=== PATIENT | female | born 1990 | race Caucasian/White ===

== ENCOUNTER 2016-07-21 14:06 | Emergency (ER) | payer OTHER ==
--- NOTE | 2016-07-21 15:00 | DIAGNOSTIC IMAGING REPORT ---
PROCEDURE: XR CHEST 2 VIEW INDICATION: COUGH TECHNIQUE: PA and lateral views. COMPARISON: None. FINDINGS: Lungs are clear. Heart and mediastinum are normal. Thorax is normal. IMPRESSION: 1. Negative chest.
--- NOTE | 2016-07-21 15:38 | ED CLINICAL REPORT ---
Clinical Report - Physicians/Mid Levels [facility] [address] [place] [address] 07/21/2016 14:10 Patient: GARY GREGG Time Seen: 14:31 Jul 21 2016. Arrived- By private vehicle. Historian- patient. 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 The dyspnea is described as moderate. The patient has had a cough. (2 days of cough, shortness of breath, and wheezing, able to use her rescue inhaler, however out of her nebulizer. Denies any travel. Denies fevers. Reports sore throat. In addition patient reports left foot pain ongoing over the last 3 days, worse with movement and standing. Denies any trauma. Denies any change in issues in position, denies any changes in activities of daily living, that would affect her left foot. Denies a rash to the foot.). REVIEW OF SYSTEMS No sinus drainage, fever, chills, abdominal pain or diarrhea. All systems otherwise negative, except as recorded above. PAST HISTORY Problems: Asthma. Contusion. Foreign Body, Vagina. Additional Surgeries: Right Hand . Medications: Albuterol Sulfate HFA Inhalation, as needed. Allergies: Erythromycin. SOCIAL HISTORY Smoker- current status unknown. No alcohol use or drug use. ADDITIONAL NOTES The nursing notes have been reviewed. PHYSICAL EXAM Vital Signs: 07/21/2016 14:20 BP: 112/76. HR: 90. RR: 20. O2 saturation: 97%. Temp: 98.6 F. ENT: Nose normal. Pharynx normal. Neck: Normal inspection. CVS: Normal heart rate and rhythm. Heart sounds normal. Respiratory: No respiratory distress. Wheezing present. Back: Normal inspection. Skin: Skin warm. Normal skin color. No rash. Extremities: (left distal foot dorsal tenderness, no swelling, no rash.). Neuro: Oriented X 3. LABS, X-RAYS, AND EKG Chest X-ray: (IMPRESSION: 1. Negative chest. Electronically Final signed by:Gabe Pruitt MD 07/21/2016 3:04:07 PM). Laboratory Tests: Culture, Strep Screen: (MARYBETH: 07/21/2016 14:30) ( MsgRcvd 07/21/2016 14:46) Final results Test Result Flag Units (Reference) RAPID STREP SCREEN - THROAT DATE: 07/21/16 NEGATIVE SCREEN: RAPID STREP SCREEN NEGATIVE; CONFIRMATION TO FOLLOW . PROGRESS AND PROCEDURES Course of Care: patient eloped from waiting room after chest x-ray, she did not receive a nebulizer treatment in the ER as planned. Patient was phoned, and will be given Medrol Dosepak, otherwise she has no underlying signs of pneumonia, PE less likely, however she eloped prior to reevaluation of her, and also unclear if albuterol nebulizer treatment which have been of relieve. Patient is stable. Patient/family counseled. Disposition: Discharged. CLINICAL IMPRESSION Asthma Exacerbation Eloped. (Electronically signed by Liz Butler P.A.-C 07/21/2016 16:23)
--- NOTE | 2016-07-21 15:38 | ED ORDER SUMMARY ---
..... Patient: GARY GREGG OrderSheet [facility] VisitID: [id number] [place] [address] 26y, F Registration Date/Time: 07/21/2016 ORDER SHEET Weight: 99.7 kg (stated) Allergies: Erythromycin GENERAL ORDERS: Chest 2V Urgent (14:29 07/21/2016 Stefano Vaz.A.-C) (Ack 14:31 NHouse ER Tech1) (14:39 NHouse ER Tech1) Culture, Strep Screen Urgent (14:29 07/21/2016 Stefano Vaz.A.-C) (14:31 NHouse ER Tech1) MEDICATION ORDERS: IV FLUIDS: ORDER SHEET NOTES: [Electronically signed by Liz Butler P.A.-C (16:23 07/21/2016)] [Electronically signed by Rosio Hopper R.N. (16:25 07/21/2016)] [Electronically locked/signed by Rosio Hopper R.N. (16:25 07/21/2016)]
--- NOTE | 2016-07-21 15:38 | ED CLINICAL REPORT ---
Clinical Report - Physicians/Mid Levels [facility] [address] [place] [address] 07/21/2016 14:10 Patient: GARY GREGG Time Seen: 14:31 Jul 21 2016. Arrived- By private vehicle. Historian- patient. 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 The dyspnea is described as moderate. The patient has had a cough. (2 days of cough, shortness of breath, and wheezing, able to use her rescue inhaler, however out of her nebulizer. Denies any travel. Denies fevers. Reports sore throat. In addition patient reports left foot pain ongoing over the last 3 days, worse with movement and standing. Denies any trauma. Denies any change in issues in position, denies any changes in activities of daily living, that would affect her left foot. Denies a rash to the foot.). REVIEW OF SYSTEMS No sinus drainage, fever, chills, abdominal pain or diarrhea. All systems otherwise negative, except as recorded above. PAST HISTORY Problems: Asthma. Contusion. Foreign Body, Vagina. Additional Surgeries: Right Hand . Medications: Albuterol Sulfate HFA Inhalation, as needed. Allergies: Erythromycin. SOCIAL HISTORY Smoker- current status unknown. No alcohol use or drug use. ADDITIONAL NOTES The nursing notes have been reviewed. PHYSICAL EXAM Vital Signs: 07/21/2016 14:20 BP: 112/76. HR: 90. RR: 20. O2 saturation: 97%. Temp: 98.6 F. ENT: Nose normal. Pharynx normal. Neck: Normal inspection. CVS: Normal heart rate and rhythm. Heart sounds normal. Respiratory: No respiratory distress. Wheezing present. Back: Normal inspection. Skin: Skin warm. Normal skin color. No rash. Extremities: (left distal foot dorsal tenderness, no swelling, no rash.). Neuro: Oriented X 3. LABS, X-RAYS, AND EKG Chest X-ray: (IMPRESSION: 1. Negative chest. Electronically Final signed by:Gabe Pruitt MD 07/21/2016 3:04:07 PM). Laboratory Tests: Culture, Strep Screen: (MARYBEHT: 07/21/2016 14:30) ( MsgRcvd 07/21/2016 14:46) Final results Test Result Flag Units (Reference) RAPID STREP SCREEN - THROAT DATE: 07/21/16 NEGATIVE SCREEN: RAPID STREP SCREEN NEGATIVE; CONFIRMATION TO FOLLOW . PROGRESS AND PROCEDURES Course of Care: patient eloped from waiting room after chest x-ray, she did not receive a nebulizer treatment in the ER as planned. Patient was phoned, and will be given Medrol Dosepak, otherwise she has no underlying signs of pneumonia, PE less likely, however she eloped prior to reevaluation of her, and also unclear if albuterol nebulizer treatment which have been of relieve. Patient is stable. Patient/family counseled. Disposition: Discharged. CLINICAL IMPRESSION Asthma Exacerbation Eloped. (Electronically signed by Liz Butler P.A.-C 07/21/2016 16:23)
--- NOTE | 2016-07-21 15:38 | ED NURSING NOTES ---
Clinical Report - Nurses [facility] [address] [place] [address] 07/21/2016 14:10 Patient: GARY GREGG TRIAGE Triage time 14:Jul 21 2016. Acuity: LEVEL 3. Chief Complaint: COUGH and SORE THROAT and WHEEZING. Alert. No acute distress. --14:29 Rosio Hopper R.N. 14:19 07/21/16. BP: 112/76. HR: 90. RR: 20. O2 saturation: 97%. Temp: 98.6 F. Pain level now 0/10. --14:29 Rosio Hopper R.N. Weight: 99.7 kg stated. Height/Length: 57 inches Per Patient. BMI: 47.6. --14:19 Rosio Hopper R.N. Medications Albuterol Sulfate HFA Inhalation, as needed. --14:22 Rosio Hopper R.N. Medication/allergy information source: the patient. --14: Rosio Hopper R.N. Allergies Erythromycin. --14:22 Rosio Hopper R.N. History Arrived by private vehicle. Historian: patient. Accompanied by friend. Primary physician (Dr. Sanders - [facility]). ( Pt states Asthma Exacerbation, cannot get her Nebulizer d/t paperwork that needs to be submitted by [facility]. In addtion she c/o's Sore Throat, Cough.). Onset. (2 days). 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 PAST MEDICAL HX: Immunizations: seasonal influenza. Last normal menstrual period- beginning of July. No contraception. Denies current . SOCIAL HX: Heavy tobacco smoker (cigarette)- less than 1 pack per day. No alcohol use or drug use. No infectious disease exposure. FALL RISK ASSESSMENT: Fall risk assessment completed. No fall risk identified. NUTRITIONAL RISK ASSESSMENT: The nutritional risk assessment revealed no deficiencies. FUNCTIONAL ASSESSMENT: Functional assessment: no impairments noted. LEARNING NEEDS ASSESSMENT: The learning needs assessment revealed no barriers. SKIN INTEGRITY ASSESSMENT: Skin integrity risk assessment completed. No skin integrity risk identified. --14:29 Rosio Hopper R.N. PROBLEMS: Contusion. Foreign Body, Vagina. --14:24 Rosio Hopper R.N. ADDITIONAL SURGERIES: Right Hand . --14:24 Rosio Hopper R.N. Interventions ID band on patient. To room. --14:29 Rosio Hopper R.N. PHYSICAL ASSESSMENT Ambulatory to room. GENERAL / NEURO / PSYCH: Oriented X 4. Appears in no acute distress. RESPIRATORY: Respirations not labored. Cough. CVS: Capillary refill less than 2 seconds. SKIN: Skin is warm and dry. --16:22 Rosio Hopper R.N. NURSING PROGRESS NOTES Throat swab obtained for rapid strep; labeled in the presence of the patient (collected by PA). --14:29 Rosio Hopper R.N. late entry -. ( pt left, told the front line supervisor she needed to picker her child. RN called pt, asked pt to return or MAXIME Sy would call her in a RX for Mederol Dose Pack. Pt asked if we could phone it in, she is now with her child and unable to return. A mouth piece neb treatment was left at front line supervisor if she returned for it, [facility] unable to provide the Nebulizer at this time. RX called into [facility].). --16:24 Rosio Hopper R.N. DISPOSITION / DISCHARGE 16:06 07/21/16. ( called rx for Medrol dosepak #1, use as directed; per Rd SWARTZ; called to [facility]). --16:06 Hilda Diallo R.N. late entry -. The patient left the Emergency Department without completion of treatment; patient was unaccompanied. The patient appears to be alert, oriented x4, coherent and in no acute distress. The patient notified the ED staff prior to leaving the department and stated is leaving the ED due to personal reasons (had to picker child). Notified the charge nurse of patient departure. Patient left without signing form prior to leaving. She left the Emergency Department ambulatory and via private vehicle. --16:25 Rosio Hopper R.N. Locked/Released at 07/21/2016 16:25 by Rosio Hopper R.N.
--- NOTE | 2016-07-21 15:38 | ED NURSING NOTES ---
Clinical Report - Nurses [facility] [address] [place] [address] 07/21/2016 14:10 Patient: GARY GREGG TRIAGE Triage time 14:Jul 21 2016. Acuity: LEVEL 3. Chief Complaint: COUGH and SORE THROAT and WHEEZING. Alert. No acute distress. --14:29 Rosio Hopper R.N. 14:19 07/21/16. BP: 112/76. HR: 90. RR: 20. O2 saturation: 97%. Temp: 98.6 F. Pain level now 0/10. --14:29 Rosio Hopper R.N. Weight: 99.7 kg stated. Height/Length: 57 inches Per Patient. BMI: 47.6. --14:19 Rosio Hopper R.N. Medications Albuterol Sulfate HFA Inhalation, as needed. --14:22 Rosio Hopper R.N. Medication/allergy information source: the patient. --14: Rosio Hopper R.N. Allergies Erythromycin. --14:22 Rosio Hopper R.N. History Arrived by private vehicle. Historian: patient. Accompanied by friend. Primary physician (Dr. Sanders - [facility]). ( Pt states Asthma Exacerbation, cannot get her Nebulizer d/t paperwork that needs to be submitted by [facility]. In addtion she c/o's Sore Throat, Cough.). Onset. (2 days). 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 PAST MEDICAL HX: Immunizations: seasonal influenza. Last normal menstrual period- beginning of July. No contraception. Denies current . SOCIAL HX: Heavy tobacco smoker (cigarette)- less than 1 pack per day. No alcohol use or drug use. No infectious disease exposure. FALL RISK ASSESSMENT: Fall risk assessment completed. No fall risk identified. NUTRITIONAL RISK ASSESSMENT: The nutritional risk assessment revealed no deficiencies. FUNCTIONAL ASSESSMENT: Functional assessment: no impairments noted. LEARNING NEEDS ASSESSMENT: The learning needs assessment revealed no barriers. SKIN INTEGRITY ASSESSMENT: Skin integrity risk assessment completed. No skin integrity risk identified. --14:29 Rosio Hopper R.N. PROBLEMS: Contusion. Foreign Body, Vagina. --14:24 Rosio Hopper R.N. ADDITIONAL SURGERIES: Right Hand . --14:24 Rosio Hopper R.N. Interventions ID band on patient. To room. --14:29 Rosio Hopper R.N. PHYSICAL ASSESSMENT Ambulatory to room. GENERAL / NEURO / PSYCH: Oriented X 4. Appears in no acute distress. RESPIRATORY: Respirations not labored. Cough. CVS: Capillary refill less than 2 seconds. SKIN: Skin is warm and dry. --16:22 Rosio Hopper R.N. NURSING PROGRESS NOTES Throat swab obtained for rapid strep; labeled in the presence of the patient (collected by PA). --14:29 Rosio Hopper R.N. late entry -. ( pt left, told the front office representative she needed to pick up operator her child. RN called pt, asked pt to return or MAXIME Sy would call her in a RX for Mederol Dose Pack. Pt asked if we could phone it in, she is now with her child and unable to return. A mouth piece neb treatment was left at front office representative if she returned for it, [facility] unable to provide the Nebulizer at this time. RX called into [facility].). --16:24 Rosio Hopper R.N. DISPOSITION / DISCHARGE 16:06 07/21/16. ( called rx for Medrol dosepak #1, use as directed; per Rd SWARTZ; called to [facility]). --16:06 Hilda Diallo R.N. late entry -. The patient left the Emergency Department without completion of treatment; patient was unaccompanied. The patient appears to be alert, oriented x4, coherent and in no acute distress. The patient notified the ED staff prior to leaving the department and stated is leaving the ED due to personal reasons (had to pick up operator child). Notified the charge nurse of patient departure. Patient left without signing form prior to leaving. She left the Emergency Department ambulatory and via private vehicle. --16:25 Rosio Hopper R.N. Locked/Released at 07/21/2016 16:25 by Rosio Hopper R.N.
--- NOTE | 2016-07-21 15:38 | ED ORDER SUMMARY ---
..... Patient: GARY GREGG OrderSheet [facility] VisitID: [id number] [place] [address] 26y, F Registration Date/Time: 07/21/2016 ORDER SHEET Weight: 99.7 kg (stated) Allergies: Erythromycin GENERAL ORDERS: Chest 2V Urgent (14:29 07/21/2016 Stefano Vaz.A.-C) (Ack 14:31 NHouse ER Tech1) (14:39 NHouse ER Tech1) Culture, Strep Screen Urgent (14:29 07/21/2016 Stefano Vaz.A.-C) (14:31 NHouse ER Tech1) MEDICATION ORDERS: IV FLUIDS: ORDER SHEET NOTES: [Electronically signed by Liz Butler P.A.-C (16:23 07/21/2016)] [Electronically signed by Rosio Hopper R.N. (16:25 07/21/2016)] [Electronically locked/signed by Rosio Hopper R.N. (16:25 07/21/2016)]
--- NOTE | 2016-07-21 16:26 | ED MAR SUMMARY ---
..... Medication Administration Record [facility] [address] [place], [place] [id number] Patient: GARY GREGG Visit ID: [id number] 26y, F Weight: 99.7 kg Height/Length: 57 in BMI: 47.6 ALLERGIES: Erythromycin
--- NOTE | 2016-07-21 16:26 | ED MED RECONCILIATION SUMMARY ---
Patient: GARY GERGG Medication Reconciliation Report [facility] VisitID: [id number] [address] [place] [address] 26y, F Registration Date/Time: 07/21/2016 Weight: 99.7 kg Height/Length: 57 in. BMI: 47.6 ALLERGIES: Erythromycin The patient's Home Medications are listed below: THE FOLLOWING MEDICATIONS NEED TO BE RECONCILED: Albuterol Sulfate HFA Inhalation The source(s) of the original Home Medication information: patient The following Medications were given to the patient in the Emergency Department: None. The following Medications were prescribed to the patient: None.
--- NOTE | 2016-07-21 16:26 | ED DISCHARGE INSTRUCTIONS ---
Patient: GARY GREGG General Instructions [facility] VisitID: [id number] [address] [place] [address] 26y, F Registration Date/Time: 07/21/2016 Asthma Exacerbation Eloped. (Electronically signed by Liz Butler P.A.-C 07/21/2016 16:23)
--- NOTE | 2016-07-21 16:26 | ED MAR SUMMARY ---
..... Medication Administration Record [facility] [address] [place], [place] [id number] Patient: GARY GREGG Visit ID: [id number] 26y, F Weight: 99.7 kg Height/Length: 57 in BMI: 47.6 ALLERGIES: Erythromycin
--- NOTE | 2016-07-21 16:26 | ED MED RECONCILIATION SUMMARY ---
Patient: GARY GREGG Medication Reconciliation Report [facility] VisitID: [id number] [address] [place] [address] 26y, F Registration Date/Time: 07/21/2016 Weight: 99.7 kg Height/Length: 57 in. BMI: 47.6 ALLERGIES: Erythromycin The patient's Home Medications are listed below: THE FOLLOWING MEDICATIONS NEED TO BE RECONCILED: Albuterol Sulfate HFA Inhalation The source(s) of the original Home Medication information: patient The following Medications were given to the patient in the Emergency Department: None. The following Medications were prescribed to the patient: None.
--- NOTE | 2016-07-21 16:26 | ED DISCHARGE INSTRUCTIONS ---
Patient: GARY GREGG General Instructions [facility] VisitID: [id number] [address] [place] [address] 26y, F Registration Date/Time: 07/21/2016 Asthma Exacerbation Eloped. (Electronically signed by Liz Butler P.A.-C 07/21/2016 16:23)
== END 2016-07-21 16:00 | disposition left against medical advice (07) ==
LOC: ED SRH 14:06
DX: J45.901 Unspecified asthma with (acute) exacerbation (principal); F17.210 Nicotine dependence, cigarettes, uncomplicated; Z88.1 Allergy status to other antibiotic agents
CPT/HCPCS: 90154; 90159; 90627

== ENCOUNTER 2016-08-14 20:15 | Emergency (ER) | payer OTHER ==
--- NOTE | 2016-08-14 21:16 | DIAGNOSTIC IMAGING REPORT ---
PROCEDURE: CT HEAD WITHOUT CONTRAST INDICATION: Frontal headache, initial encounter TECHNIQUE: Noncontrast axial images with sagittal and coronal reformations. COMPARISON: None. FINDINGS: Sulci, ventricular system, and brain parenchyma are normal. No evidence of acute intracranial process. Moderate maxillary sinus mucosal thickening. Mastoid are clear. IMPRESSION: 1. No acute intracranial abnormality 2. Moderate bilateral maxillary sinus mucosal thickening 3. Findings discussed with Rd Butler at 09:14 p.m., [place] Standard Time the
--- NOTE | 2016-08-14 22:10 | ED CLINICAL REPORT ---
Clinical Report - Physicians/Mid Levels [facility] [address] [place] [address] 08/14/2016 20:15 [id number] Time Seen: 22:33 Aug 14 2016. Arrived- By private vehicle. HISTORY OF PRESENT ILLNESS Chief Complaint: HEADACHE. This started just prior to arrival. (Patient reports having since yesterday, frontal and global nature, worsened with movement, has had rhinorrhea and congestion. Recently seen and hospitalized at [place], with asthma exacerbation. respiratory symptoms have been improving, patient currently on steroids, as well as Augmentin. No fevers. No neck pain. No shortness of breath. No syncope. No recent travel. No head injury.). REVIEW OF SYSTEMS No fever, abdominal pain, pain with urination or skin rash. She has had sinus pressure. All systems otherwise negative, except as recorded above. PAST HISTORY Problems: Asthma. Contusion. Foreign Body, Vagina. Additional Surgeries: Right Hand . Medications: Albuterol Sulfate HFA Inhalation, as needed. Allergies: Erythromycin. Toradol. SOCIAL HISTORY Never smoker. No alcohol use or drug use. ADDITIONAL NOTES The nursing notes have been reviewed. PHYSICAL EXAM Vital Signs: 08/14/2016 20:21 BP: 125/101. HR: 107. RR: 20. O2 saturation: 98%. Temp: 98.2 F. Appearance: Alert. No acute distress. No apparent distress. Does not appear to be anxious. Head: Tenderness present to percussion/palpation of the sinuses. Eyes: Eyes normal inspection. ENT: No nasal discharge, pharyngeal erythema or tonsillar exudate. Neck: Normal inspection. No meningeal signs. CVS: Normal heart rate and rhythm. Heart sounds normal. Respiratory: No respiratory distress. Breath sounds normal. Back: Normal inspection. Skin: Skin warm. Normal skin color. Neuro: Oriented X 3. Alert. Mood/affect normal. Speech normal. Cranial nerves normal (as tested). No motor deficit. No sensory deficit. LABS, X-RAYS, AND EKG CT Head: (IMPRESSION: 1. No acute intracranial abnormality 2. Moderate bilateral maxillary sinus mucosal thickening 3. Findings discussed with Rd Butler at 09:14 p.m., [place] Standard Time the Electronically Final signed by:Abdirashid Turcios MD 08/14/2016 9:16:11 PM). PROGRESS AND PROCEDURES Course of Care: Patient with frontal tenderness, consistent with sinus disease, evaluated in the ER with Dr. Pelayo, consulted with him. Patient stable. No meningeal signs, several hemorrhage also less likely concerning, this patient discharged to home care. Stable. 08/14/2016 22:23 BP: 138/74. HR: 90. RR: 18. O2 saturation: 98%. Temp: 98.1 F. Pain level now: 04/21. Patient is stable. Patient/family counseled. Differential Diagnosis: I considered migraine, cluster headache, vascular malformation, vascular dissection, malignant hypertension, cerebral venous thrombosis, bacterial meningitis, encephalitis, sinusitis, carbon monoxide exposure, trigeminal neuralgia, Lyn-Sorensen neuralgia, subdural hematoma, muscle tension and acute angle-closure glaucoma as a possible cause of headache in this patient. This is a partial list of diagnoses considered. Disposition: Discharged. CLINICAL IMPRESSION Acute maxillary sinusitis INSTRUCTIONS Do not work tomorrow. (take your medications take sudafed/ benadryl at night claritin in the am humidified air/ steam). Warnings: Further evaluation is necessary. OTC Medications: Take acetaminophen (Tylenol, Datril, etc.), ibuprofen (Advil, Nuprin, etc.), Benadryl, Sudafed and nasal spray decongestant (such as Afrin) according to label instructions. Available over the counter. Afrin nasal spray (Available over the counter): Take according to label instructions. (Electronically signed by Liz Butler P.A.-C 08/14/2016 22:35)
--- NOTE | 2016-08-14 22:10 | ED ORDER SUMMARY ---
..... Patient: GARY GREGG OrderSheet [facility] VisitID: [id number] [address] [place] [address] 26y, F Registration Date/Time: 08/14/2016 ORDER SHEET Weight: 97.5 kg (stated) Allergies: Erythromycin, Toradol GENERAL ORDERS: CT Head wo Cont Urgent (20:57 08/14/2016 Stefano Berry) (Ack 20:57 LMull) (21:13 [facility]) MEDICATION ORDERS: IV FLUIDS: ORDER SHEET NOTES: [Electronically signed by Dilia Jimenez R.N. (22:25 08/14/2016)] [Electronically signed by Liz Butler P.A.-C (22:35 08/14/2016)] [Electronically locked/signed by Dilia Jimenez R.N. (22:25 08/14/2016)]
--- NOTE | 2016-08-14 22:10 | ED NURSING NOTES ---
Clinical Report - Nurses [facility] [address] [place] [address] 08/14/2016 20:15 [id number] Triage time 20:21. Acuity: LEVEL 3. Chief Complaint: HEADACHE. ( Pain is past a 10.). --20:28 Rene Ricketts R.N. 20:21 08/14/16. BP: 125/101. HR: 107. RR: 20. O2 saturation: 98%. Temp: 98.2 F. Pain level now 04/21. --20:28 Rene Ricketts R.N. Weight: 97.5 kg stated. Height/Length: 57 inches Per Patient. BMI: 46.6. --20:26 Rene Ricketts R.N. Medications Albuterol Sulfate HFA Inhalation, as needed. --20:25 Rene Ricketts R.N. Medication/allergy information source: the patient. --20:28 Rene Ricketts R.N. Allergies Erythromycin. --20:25 Rene Ricketts R.N. Toradol. --20:25 Rene Ricketts R.N. History Arrived by private vehicle. Historian: patient. Accompanied by friend. This started yesterday. ( Pt was recently admitted at [facility] for asthma exacerbation for 2 days. Pt believes the diagnosis was wrong and is here today for a headache since yesterday. Pt is feeling nausea. Pt is having blurred vision and the light hurts her eyes.). She has had nausea. PAST MEDICAL HX: Immunizations: up-to-date. Denies current . SOCIAL HX: Never smoker. No alcohol use or drug use. --20:28 Rene Ricketts R.N. PROBLEMS: Asthma. Contusion. Foreign Body, Vagina. --20:26 Rene Ricketts R.N. Interventions ID band on patient. To treatment room. --20:28 Rene Ricketts R.N. PHYSICAL ASSESSMENT GENERAL / NEURO / PSYCH: Alert. Oriented X 4. Appears in no acute distress. Speech within normal limits. HEENT: No facial asymmetry noted. Pupils equal, round and reactive to light. RESPIRATORY: Respirations not labored. Breath sounds within normal limits. CVS: Capillary refill less than 2 seconds. GI / : Abdomen soft and nontender. SKIN: Skin is warm and dry. --20:29 Rene Ricketts R.N. NURSING PROGRESS NOTES The plan of care for this patient has been created. Patient gowned. Head of bed elevated. Lights dimmed. Two patient identifiers checked. Call light placed in reach. Side rails up x 1. Bed placed in lowest position. --20:29 Rene Ricketts R.N. DISPOSITION / DISCHARGE Condition at departure: improved. No learning barriers present. Reviewed medication(s) side effects, precautions, dosing and course information. Prescription(s) given to the patient. Work note given. Patient verbalized understanding. Written instructions provided in Syriac. The patient was discharged home and accompanied by farm machinery assembler. She left the Emergency Department ambulatory and via private vehicle. Battery Parts Assembler driving. Medication list reviewed and validated. --22:24 Dilia Jimenez R.N. 22:23 08/14/16. BP: 138/74. HR: 90. RR: 18. O2 saturation: 98% on room air. Temp: 98.1 F. Pain level now: 04/21. 20:21 08/14/16. BP: 125/101. HR: 107. RR: 20. O2 saturation: 98%. Temp: 98.2 F. Pain level now 10. --22:24 Dilia Jimenez R.N. Locked/Released at 08/14/2016 22:25 by Dilia Jimenez R.N.
--- NOTE | 2016-08-14 22:10 | ED NURSING NOTES ---
Clinical Report - Nurses [facility] [address] [place] [address] 08/14/2016 20:15 [id number] Triage time 20:21. Acuity: LEVEL 3. Chief Complaint: HEADACHE. ( Pain is past a 10.). --20:28 Rene Ricketts R.N. 20:21 08/14/16. BP: 125/101. HR: 107. RR: 20. O2 saturation: 98%. Temp: 98.2 F. Pain level now 04/21. --20:28 Rene Ricketts R.N. Weight: 97.5 kg stated. Height/Length: 57 inches Per Patient. BMI: 46.6. --20:26 Rene Ricketts R.N. Medications Albuterol Sulfate HFA Inhalation, as needed. --20:25 Rene Ricketts R.N. Medication/allergy information source: the patient. --20:28 Rene Ricketts R.N. Allergies Erythromycin. --20:25 Rene Ricketts R.N. Toradol. --20:25 Rene Ricketts R.N. History Arrived by private vehicle. Historian: patient. Accompanied by friend. This started yesterday. ( Pt was recently admitted at [place] for asthma exacerbation for 2 days. Pt believes the diagnosis was wrong and is here today for a headache since yesterday. Pt is feeling nausea. Pt is having blurred vision and the light hurts her eyes.). She has had nausea. PAST MEDICAL HX: Immunizations: up-to-date. Denies current . SOCIAL HX: Never smoker. No alcohol use or drug use. --20:28 Rene Ricketts R.N. PROBLEMS: Asthma. Contusion. Foreign Body, Vagina. --20:26 Rene Ricketts R.N. Interventions ID band on patient. To treatment room. --20:28 Rene Ricketts R.N. PHYSICAL ASSESSMENT GENERAL / NEURO / PSYCH: Alert. Oriented X 4. Appears in no acute distress. Speech within normal limits. HEENT: No facial asymmetry noted. Pupils equal, round and reactive to light. RESPIRATORY: Respirations not labored. Breath sounds within normal limits. CVS: Capillary refill less than 2 seconds. GI / : Abdomen soft and nontender. SKIN: Skin is warm and dry. --20:29 Rene Ricketts R.N. NURSING PROGRESS NOTES The plan of care for this patient has been created. Patient gowned. Head of bed elevated. Lights dimmed. Two patient identifiers checked. Call light placed in reach. Side rails up x 1. Bed placed in lowest position. --20:29 Rene Ricketts R.N. DISPOSITION / DISCHARGE Condition at departure: improved. No learning barriers present. Reviewed medication(s) side effects, precautions, dosing and course information. Prescription(s) given to the patient. Work note given. Patient verbalized understanding. Written instructions provided in Belarusian. The patient was discharged home and accompanied by assembler small products. She left the Emergency Department ambulatory and via private vehicle. Home [employer] Disclosure Act Specialist driving. Medication list reviewed and validated. --22:24 Dilia Jimenez R.N. 22:23 08/14/16. BP: 138/74. HR: 90. RR: 18. O2 saturation: 98% on room air. Temp: 98.1 F. Pain level now: 04/21. 20:21 08/14/16. BP: 125/101. HR: 107. RR: 20. O2 saturation: 98%. Temp: 98.2 F. Pain level now 10. --22:24 Dilia Jimenez R.N. Locked/Released at 08/14/2016 22:25 by Dilia Jimenez R.N.
--- NOTE | 2016-08-14 22:10 | ED ORDER SUMMARY ---
..... Patient: GARY GREGG OrderSheet [facility] VisitID: [id number] [address] [place] [address] 26y, F Registration Date/Time: 08/14/2016 ORDER SHEET Weight: 97.5 kg (stated) Allergies: Erythromycin, Toradol GENERAL ORDERS: CT Head wo Cont Urgent (20:57 08/14/2016 Stefano Berry) (Ack 20:57 LMull) (21:13 [facility]) MEDICATION ORDERS: IV FLUIDS: ORDER SHEET NOTES: [Electronically signed by Dilia Jimenez R.N. (22:25 08/14/2016)] [Electronically signed by Liz Butler P.A.-C (22:35 08/14/2016)] [Electronically locked/signed by Dilia Jimenez R.N. (22:25 08/14/2016)]
--- NOTE | 2016-08-14 22:10 | ED CLINICAL REPORT ---
Clinical Report - Physicians/Mid Levels [facility] [address] [place] [address] 08/14/2016 20:15 [id number] Time Seen: 22:33 Aug 14 2016. Arrived- By private vehicle. HISTORY OF PRESENT ILLNESS Chief Complaint: HEADACHE. This started just prior to arrival. (Patient reports having since yesterday, frontal and global nature, worsened with movement, has had rhinorrhea and congestion. Recently seen and hospitalized at [place], with asthma exacerbation. respiratory symptoms have been improving, patient currently on steroids, as well as Augmentin. No fevers. No neck pain. No shortness of breath. No syncope. No recent travel. No head injury.). REVIEW OF SYSTEMS No fever, abdominal pain, pain with urination or skin rash. She has had sinus pressure. All systems otherwise negative, except as recorded above. PAST HISTORY Problems: Asthma. Contusion. Foreign Body, Vagina. Additional Surgeries: Right Hand . Medications: Albuterol Sulfate HFA Inhalation, as needed. Allergies: Erythromycin. Toradol. SOCIAL HISTORY Never smoker. No alcohol use or drug use. ADDITIONAL NOTES The nursing notes have been reviewed. PHYSICAL EXAM Vital Signs: 08/14/2016 20:21 BP: 125/101. HR: 107. RR: 20. O2 saturation: 98%. Temp: 98.2 F. Appearance: Alert. No acute distress. No apparent distress. Does not appear to be anxious. Head: Tenderness present to percussion/palpation of the sinuses. Eyes: Eyes normal inspection. ENT: No nasal discharge, pharyngeal erythema or tonsillar exudate. Neck: Normal inspection. No meningeal signs. CVS: Normal heart rate and rhythm. Heart sounds normal. Respiratory: No respiratory distress. Breath sounds normal. Back: Normal inspection. Skin: Skin warm. Normal skin color. Neuro: Oriented X 3. Alert. Mood/affect normal. Speech normal. Cranial nerves normal (as tested). No motor deficit. No sensory deficit. LABS, X-RAYS, AND EKG CT Head: (IMPRESSION: 1. No acute intracranial abnormality 2. Moderate bilateral maxillary sinus mucosal thickening 3. Findings discussed with Rd Butler at 09:14 p.m., [place] Standard Time the Electronically Final signed by:Abdirashid Turcios MD 08/14/2016 9:16:11 PM). PROGRESS AND PROCEDURES Course of Care: Patient with frontal tenderness, consistent with sinus disease, evaluated in the ER with Dr. Pelayo, consulted with him. Patient stable. No meningeal signs, several hemorrhage also less likely concerning, this patient discharged to home care. Stable. 08/14/2016 22:23 BP: 138/74. HR: 90. RR: 18. O2 saturation: 98%. Temp: 98.1 F. Pain level now: 04/21. Patient is stable. Patient/family counseled. Differential Diagnosis: I considered migraine, cluster headache, vascular malformation, vascular dissection, malignant hypertension, cerebral venous thrombosis, bacterial meningitis, encephalitis, sinusitis, carbon monoxide exposure, trigeminal neuralgia, Lyn-Sorensen neuralgia, subdural hematoma, muscle tension and acute angle-closure glaucoma as a possible cause of headache in this patient. This is a partial list of diagnoses considered. Disposition: Discharged. CLINICAL IMPRESSION Acute maxillary sinusitis INSTRUCTIONS Do not work tomorrow. (take your medications take sudafed/ benadryl at night claritin in the am humidified air/ steam). Warnings: Further evaluation is necessary. OTC Medications: Take acetaminophen (Tylenol, Datril, etc.), ibuprofen (Advil, Nuprin, etc.), Benadryl, Sudafed and nasal spray decongestant (such as Afrin) according to label instructions. Available over the counter. Afrin nasal spray (Available over the counter): Take according to label instructions. (Electronically signed by Liz Butler P.A.-C 08/14/2016 22:35)
--- NOTE | 2016-08-14 22:35 | ED MAR SUMMARY ---
..... Medication Administration Record [facility] [address], [place] [id number] Patient: GARY GREGG Visit ID: [id number] 26y, F Weight: 97.5 kg Height/Length: 57 in BMI: 46.6 ALLERGIES: Toradol, Erythromycin
--- NOTE | 2016-08-14 22:35 | ED DISCHARGE INSTRUCTIONS ---
Patient: GARY GREGG General Instructions [facility] VisitID: [id number] [place] [address] 26y, F Registration Date/Time: 08/14/2016 Acute maxillary sinusitis INSTRUCTIONS Do not work tomorrow. (take your medications take sudafed/ benadryl at night claritin in the am humidified air/ steam). Warnings: Further evaluation is necessary. OTC Medications: Take acetaminophen (Tylenol, Datril, etc.), ibuprofen (Advil, Nuprin, etc.), Benadryl, Sudafed and nasal spray decongestant (such as Afrin) according to label instructions. Available over the counter. Afrin nasal spray (Available over the counter): Take according to label instructions. ADDITIONAL INFORMATION Sinusitis [Abx Tx] The sinuses are air-filled spaces within the bones of the face. They connect to the inside of the nose. Sinusitis is an inflammation of the tissue lining the sinus cavity. Sinus inflammation can occur during a cold or hay-fever (allergies to pollens and other particles in the air) and cause symptoms of sinus congestion and fullness. A sinus infection causes fever, headache and facial pain. There is usually green or yellow drainage from the nose or into the back of the throat (post-nasal drip). Antibiotics are prescribed to treat this condition. Home Care: Drink plenty of water, hot tea, and other liquids to stay well hydrated. This thins the mucus and promotes sinus drainage. Apply heat to the painful areas of the face. Use a towel soaked in hot water. Or, rodding machine tender the shower and direct the hot spray onto your face. This is a good way to inhale warm water vapor and get heat on your face at the same time. (Cover your mouth and nose with your hands so you can still breathe as you do this.) Use a vaporizer with products such as Vicks VapoRub (contains menthol) at night. Suck on peppermint, menthol or eucalyptus hard candies during the day. An expectorant containing guaifenesin (such as Robitussin), helps to thin the mucus and promote drainage from the sinuses. Nbkk-ach-fttluia decongestants may be used unless a similar medicine was prescribed. Nasal sprays work the fastest. Use one that contains phenylephrine (Dimas-synephrine, Sinex and others) or oxymetazoline (Afrin). First blow the nose gently to remove mucus, then apply the drops. Do not use these medicines more often than directed on the label or for more than three days or symptoms may worsen. You may also use tablets containing pseudoephedrine (Sudafed). Many sinus remedies combine ingredients, which may increase side effects. Read the labels or ask the pharmacist for help. NOTE: Persons with high blood pressure should not use decongestants. They can raise blood pressure. Antihistamines are useful if allergies are a cause of your sinusitis. The mildest one is chlorpheniramine (available without a prescription). The dose for adults is 8-12mg three times a day. [NOTE: Do not use chlorpheniramine if you have glaucoma or if you are a man with trouble urinating due to an enlarged prostate.] Claritin (loratidine) is an antihistamine that causes less drowsiness and is a good alternative for daytime use. Do not use nasal rinses or irrigation during an acute sinus infection, unless advised by your doctor. Rinsing may spread the infection to other sinuses. You may use acetaminophen (Tylenol) or ibuprofen (Motrin, Advil) to control pain, unless another pain medicine was prescribed. [ NOTE: If you have chronic liver or kidney disease or ever had a stomach ulcer, talk with your doctor before using these medicines.] (Aspirin should never be used in anyone under 18 years of age who is ill with a fever. It may cause severe liver damage.) Finish the full course, even if you are feeling better after a few days. Follow Up with your doctor or this facility in one week or as instructed by our staff if not improving. Get Prompt Medical Attention if any of the following occur: Facial pain or headache becomes more severe Stiff neck Unusual drowsiness or confusion, or not acting like your normal self Swelling of the forehead or eyelids Vision problems including blurred or double vision Fever of 100.4F (38C) or higher, or as directed by your healthcare provider Seizure You have been given the following additional information: Sinusitis, Abx Tx Do not work tomorrow. (Electronically signed by Liz Butler P.A.-Gilbert 08/14/2016 22:35)
--- NOTE | 2016-08-14 22:35 | ED MAR SUMMARY ---
..... Medication Administration Record [facility] [address], [place] [id number] Patient: GARY GREGG Visit ID: [id number] 26y, F Weight: 97.5 kg Height/Length: 57 in BMI: 46.6 ALLERGIES: Toradol, Erythromycin
--- NOTE | 2016-08-14 22:35 | ED MED RECONCILIATION SUMMARY ---
Patient: GARY GREGG Medication Reconciliation Report [facility] VisitID: [id number] [address] [place] [address] 26y, F Registration Date/Time: 08/14/2016 Weight: 97.5 kg Height/Length: 57 in. BMI: 46.6 ALLERGIES: Erythromycin, Toradol The patient's Home Medications are listed below: THE FOLLOWING MEDICATIONS NEED TO BE RECONCILED: Albuterol Sulfate HFA Inhalation The source(s) of the original Home Medication information: patient The following Medications were given to the patient in the Emergency Department: None. The following Medications were prescribed to the patient: Take acetaminophen (Tylenol, Datril, etc.), ibuprofen (Advil, Nuprin, etc.), Benadryl, Sudafed and nasal spray decongestant (such as Afrin) according to label instructions. Available over the counter. -- Liz Butler, P.AShama-Gilbert Afrin nasal spray (Available over the counter): Take according to label instructions. -- Liz Butler, P.A.-C
--- NOTE | 2016-08-14 22:35 | ED MED RECONCILIATION SUMMARY ---
Patient: GARY GREGG Medication Reconciliation Report [facility] VisitID: [id number] [address] [place] [address] 26y, F Registration Date/Time: 08/14/2016 Weight: 97.5 kg Height/Length: 57 in. BMI: 46.6 ALLERGIES: Erythromycin, Toradol The patient's Home Medications are listed below: THE FOLLOWING MEDICATIONS NEED TO BE RECONCILED: Albuterol Sulfate HFA Inhalation The source(s) of the original Home Medication information: patient The following Medications were given to the patient in the Emergency Department: None. The following Medications were prescribed to the patient: Take acetaminophen (Tylenol, Datril, etc.), ibuprofen (Advil, Nuprin, etc.), Benadryl, Sudafed and nasal spray decongestant (such as Afrin) according to label instructions. Available over the counter. -- Liz Butler, P.AShama-Gilbert Afrin nasal spray (Available over the counter): Take according to label instructions. -- Liz Butler, P.A.-C
== END 2016-08-14 22:18 | disposition home or self-care (01) ==
LOC: ED SRH 20:15
DX: J01.00 Acute maxillary sinusitis, unspecified (principal); J45.909 Unspecified asthma, uncomplicated; Z88.1 Allergy status to other antibiotic agents; Z88.5 Allergy status to narcotic agent

== ENCOUNTER 2016-10-21 18:56 | Emergency (ER) | payer OTHER ==
--- NOTE | 2016-10-21 19:45 | ED CLINICAL REPORT ---
Clinical Report - Physicians/Mid Levels [facility] [address] [place] [address] 10/21/2016 18:56 [id number] Time Seen: 19:12; initial patient contact, initial documentation, patient care assumed. Arrived- By private vehicle. Historian- patient. HISTORY OF PRESENT ILLNESS Chief Complaint: DENTAL PAIN. This started about 1 weeks ago and is still present. Pain described as severe. No sore throat, mouth sores, nasal discharge or congestion or ear pain. No swollen face or jaw pain. She has had toothache involving a single tooth (right upper molar). She has had swelling of the jaw and facial pain. Recent medical care: The patient was seen recently in the office. ( went to dental clinic on 10/14, tooth was removed, c/o swelling and pain to site, rx amoxcillin, went to another clinic on 10/18, rx augmentin, no f/u with dentist scheduled, also taking). REVIEW OF SYSTEMS No fever, cough or difficulty breathing. All systems otherwise negative, except as recorded above. PAST HISTORY See nurses notes. PROBLEMS: Asthma. --19:10 PageNancy Mendoza, R.N. ADDITIONAL SURGERIES: Right Hand . --19:10 Nancy Comer RManuel. SOCIAL HISTORY Light tobacco smoker. Occasional alcohol use. No drug use. No recent travel. Is a local resident. FAMILY HISTORY Negative. ADDITIONAL NOTES The nursing notes have been reviewed with agreement regarding the chief complaint, HPI, ROS, PMH and patient medications and allergies. PHYSICAL EXAM Vital Signs: 10/21/2016 19:07 BP: 128/66. HR: 94. RR: 17. O2 saturation: 98%. Temp: 98.5 F. Pain level now: 04/21. Have been reviewed as normal and appear to be correct. Appearance: Alert. No acute distress. (pt denies any drug use, but smells strongly of marijuana). Head: Normal external inspection. Eyes: Pupils equal, round and reactive to light. Conjunctivae and eyelids normal. ENT: Ears normal. Nose normal. Pharynx normal. Lips normal. Gums normal. No trismus present. Uvula midline. (molar #1 extraction site, clear, no swelling, no dc, no bleeding, obvious hole from extraction). Neck: Normal inspection. Trachea midline. No adenopathy. Thyroid normal. Neck supple. Respiratory: No respiratory distress. Skin: Normal skin color. No rash. Normal skin turgor. Extremities: Extremities exhibit normal ROM. Extremities nontender. Neuro: Oriented X 3. No motor deficit. No sensory deficit. PROGRESS AND PROCEDURES Patient counseled in person regarding the patient's stable condition and diagnosis. 19:45. Differential Diagnosis: Other possible considerations: substance abuse, dental pain, caries, abscess, dry socket. Above considerations are based on history and physical exam. Differential diagnosis was discussed with patient. Disposition: Discharged home in good and improved condition (19:45). Condition: good and stable. CLINICAL IMPRESSION Moderate dental pain. INSTRUCTIONS Warnings: GENERAL WARNINGS: Return or contact your physician immediately if your condition worsens or changes unexpectedly, if not improving as expected, or if other problems arise. Specifically return if problem worsens. Prescription Medications: Zofran 4 mg: Take 1 orally every six hours as needed for nausea/vomiting. Dispense ten (10). No refills. Substitution is permissible. Mobile 5 mg / 325 mg tablets: take 1 to 2 orally every 6 hours as needed for pain. Dispense fifteen (15). No refills. Substitution is permissible. Follow-up: Follow up with a dentist in about two days even if well. Call for an appointment. Summary of care provided to patient. Understanding of the discharge instructions verbalized by patient. (Electronically signed by Deloris Rock A.R.N.P. 10/21/2016 20:23)
--- NOTE | 2016-10-21 19:45 | ED NURSING NOTES ---
Clinical Report - Nurses [facility] [place] [address] 10/21/2016 18:56 [id number] TRI[facility] Triage time 19:07 Oct 21 2016. Acuity: LEVEL 4. Chief Complaint: RIGHT UPPER TOOTHACHE and (pt had tooth extraction on 10/14/2016 at [facility], pt reports cont swelling and pain to site. pt was on amoxicillin, then pt went to [facility] on thursday and was switched to augmentin). Alert. No acute distress. SEPSIS SCREEN: Sepsis Screen: negative. Infection suspected/documented. Heart rate greater than 90. --19:14 Nancy Comer R.N. 19:07 10/21/16. BP: 128/66. HR: 94. RR: 17. O2 saturation: 98% on room air. Temp: 98.5 F. Pain level now: 04/21. --19:14 Nancy Comer R.N. Weight: 99.7 kg stated. Height/Length: 57 inches Per Patient. BMI: 47.6. --19:12 Nancy Comer R.N. Medications Albuterol Sulfate Inhalation, PRN. --19:10 Nancy Comer R.N. Augmentin Oral. --19:10 Nancy Comer R.N. Diclofenac Oral. --19:50 McQuoid, Brittny, ER Tech1. Medication/allergy information source: the patient. --19:14 Nancy Comer R.N. Allergies Erythromycin. --19:09 Nancy Comer R.N. Toradol. --19:10 Nancy Comer R.N. History Arrived by private vehicle. Historian: patient and family. Accompanied by family. Onset. (pt reports pain since procedure 19:11 Oct 21 2016). She has no dental appointment scheduled. She has had facial pain. She has had a toothache and swelling of the jaw. 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 PAST MEDICAL HX: Immunizations: up-to-date. Last normal menstrual period- 2 weeks ago. SOCIAL HX: Heavy tobacco smoker- less than 1 pack per day. No alcohol use or drug use. No infectious disease exposure. ABUSE ASSESSMENT: No report of abuse. SELF HARM ASSESSMENT: A self harm assessment was performed. The patient answered "no" to the question "Have you recently felt down, depressed, or hopeless?", "Have you noticed less interest or pleasure in doing things?", "Do you have thoughts of harming or killing yourself?", "Are you here because you tried to hurt yourself?", "Have you ever tried to hurt yourself before today?", "Have you recently had thoughts about harming or killing others?" and "Do you have any dangerous items in your possession?". FALL RISK ASSESSMENT: Fall risk assessment completed. No fall risk identified. NUTRITIONAL RISK ASSESSMENT: The nutritional risk assessment revealed no deficiencies. FUNCTIONAL ASSESSMENT: Functional assessment: no impairments noted. LEARNING NEEDS ASSESSMENT: The learning needs assessment revealed no barriers. SKIN INTEGRITY ASSESSMENT: Skin integrity risk assessment completed. No skin integrity risk identified. --19:14 Nancy Comer RManuel. PROBLEMS: Asthma. --19:10 Nancy Comer R.N. ADDITIONAL SURGERIES: Right Hand . --19:10 Nancy Comer RShamaN. Interventions ID and allergy band on patient. To treatment room. --19:14 Nanyc Comre R.N. PHYSICAL ASSESSMENT GENERAL / NEURO / PSYCH: Alert. Oriented X 4. Appears in no acute distress. HEENT: Pupils equal, round and reactive to light. Voice within normal limits. Dental decay (pt here for pain and cont swelling to extraction site from 10-14-2016, pt speaks long, full clear sentences, clears oral secretions). RESPIRATORY: Respirations not labored. CVS: Capillary refill less than 2 seconds. SKIN: Skin is warm and dry. Normal skin turgor. --19:15 Nancy Comer RShamaN. Ambulatory to room. --19:15 Nancy Comer R.N. NURSING PROGRESS NOTES Reassurance given. Two patient identifiers checked. Call light placed in reach. Side rails up x 1. Bed placed in lowest position. Brakes of bed on. Patient ready for evaluation- chart flagged. --19:15 Nancy Comer R.N. 20:01 10/21/2016 Hydrocodone-APAP (Hydrocodone-Acetaminophen) PO 5/325 mg Tablets 1 tab given. Allergies verified, confirmed 5 rights and sedative warning given to the patient. --20:01 Laurie Lobo R.N. 20:01 10/21/2016 Zofran ODT (Ondansetron) PO Oral Disintegrating Tablets 4 mg given. Allergies verified. --20:01 Laurie Lobo R.N. DISPOSITION / DISCHARGE 20:03 10/21/16. Condition at departure: improved and stable. The goals identified in the patient's plan of care were met. No learning barriers present. Reviewed warnings (no driving while taking pain medicine. No alcohol while taking pain medications). Reviewed medication(s) side effects, precautions, dosing and course information. Prescription(s) given to the patient. Reviewed referral to a dentist and primary care physician for followup. Summary of care provided to patient via paper. Patient verbalized understanding. Written instructions provided in Tristanian. The patient was discharged home and accompanied by daylight driller. She left the Emergency Department ambulatory and via private vehicle. Clerk Analyst driving. --20:03 Laurie Lobo R.N. 19:07 10/21/16. BP: 128/66. HR: 94. RR: 17. O2 saturation: 98% on room air. Temp: 98.5 F. Pain level now: 04/21. --20:03 Laurie Lobo R.N. Departure time: 20:Oct 21 2016. --20:03 Laurie Lobo R.N. Locked/Released at 10/21/2016 20:03 by Laurie Lobo R.N.
--- NOTE | 2016-10-21 19:45 | ED NURSING NOTES ---
Clinical Report - Nurses [facility] [place] [address] 10/21/2016 18:56 [id number] TRIAGE Triage time 19:07 Oct 21 2016. Acuity: LEVEL 4. Chief Complaint: RIGHT UPPER TOOTHACHE and (pt had tooth extraction on 10/14/2016 at [facility], pt reports cont swelling and pain to site. pt was on amoxicillin, then pt went to [facility] on thursday and was switched to augmentin). Alert. No acute distress. SEPSIS SCREEN: Sepsis Screen: negative. Infection suspected/documented. Heart rate greater than 90. --19:14 Nancy Comer R.N. 19:07 10/21/16. BP: 128/66. HR: 94. RR: 17. O2 saturation: 98% on room air. Temp: 98.5 F. Pain level now: 04/21. --19:14 Nancy Comer R.N. Weight: 99.7 kg stated. Height/Length: 57 inches Per Patient. BMI: 47.6. --19:12 Nancy Comer R.N. Medications Albuterol Sulfate Inhalation, PRN. --19:10 Nancy Comer R.N. Augmentin Oral. --19:10 Nancy Comer R.N. Diclofenac Oral. --19:50 McQuoid, Brittny, ER Tech1. Medication/allergy information source: the patient. --19:14 Nancy Comer R.N. Allergies Erythromycin. --19:09 Nancy Comer R.N. Toradol. --19:10 Nancy Comer R.N. History Arrived by private vehicle. Historian: patient and family. Accompanied by family. Onset. (pt reports pain since procedure 19:11 Oct 21 2016). She has no dental appointment scheduled. She has had facial pain. She has had a toothache and swelling of the jaw. 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 PAST MEDICAL HX: Immunizations: up-to-date. Last normal menstrual period- 2 weeks ago. SOCIAL HX: Heavy tobacco smoker- less than 1 pack per day. No alcohol use or drug use. No infectious disease exposure. ABUSE ASSESSMENT: No report of abuse. SELF HARM ASSESSMENT: A self harm assessment was performed. The patient answered "no" to the question "Have you recently felt down, depressed, or hopeless?", "Have you noticed less interest or pleasure in doing things?", "Do you have thoughts of harming or killing yourself?", "Are you here because you tried to hurt yourself?", "Have you ever tried to hurt yourself before today?", "Have you recently had thoughts about harming or killing others?" and "Do you have any dangerous items in your possession?". FALL RISK ASSESSMENT: Fall risk assessment completed. No fall risk identified. NUTRITIONAL RISK ASSESSMENT: The nutritional risk assessment revealed no deficiencies. FUNCTIONAL ASSESSMENT: Functional assessment: no impairments noted. LEARNING NEEDS ASSESSMENT: The learning needs assessment revealed no barriers. SKIN INTEGRITY ASSESSMENT: Skin integrity risk assessment completed. No skin integrity risk identified. --19:14 Nancy Comer RManuel. PROBLEMS: Asthma. --19:10 Nancy Comer R.N. ADDITIONAL SURGERIES: Right Hand . --19:10 Nancy Comer RShamaN. Interventions ID and allergy band on patient. To treatment room. --19:14 Nancy Comer R.N. PHYSICAL ASSESSMENT GENERAL / NEURO / PSYCH: Alert. Oriented X 4. Appears in no acute distress. HEENT: Pupils equal, round and reactive to light. Voice within normal limits. Dental decay (pt here for pain and cont swelling to extraction site from 10-14-2016, pt speaks long, full clear sentences, clears oral secretions). RESPIRATORY: Respirations not labored. CVS: Capillary refill less than 2 seconds. SKIN: Skin is warm and dry. Normal skin turgor. --19:15 Nancy Comer RShamaN. Ambulatory to room. --19:15 Nancy Comer R.N. NURSING PROGRESS NOTES Reassurance given. Two patient identifiers checked. Call light placed in reach. Side rails up x 1. Bed placed in lowest position. Brakes of bed on. Patient ready for evaluation- chart flagged. --19:15 Nancy Comer R.N. 20:01 10/21/2016 Hydrocodone-APAP (Hydrocodone-Acetaminophen) PO 5/325 mg Tablets 1 tab given. Allergies verified, confirmed 5 rights and sedative warning given to the patient. --20:01 Laurie Lobo R.N. 20:01 10/21/2016 Zofran ODT (Ondansetron) PO Oral Disintegrating Tablets 4 mg given. Allergies verified. --20:01 Laurie Lobo R.N. DISPOSITION / DISCHARGE 20:03 10/21/16. Condition at departure: improved and stable. The goals identified in the patient's plan of care were met. No learning barriers present. Reviewed warnings (no driving while taking pain medicine. No alcohol while taking pain medications). Reviewed medication(s) side effects, precautions, dosing and course information. Prescription(s) given to the patient. Reviewed referral to a dentist and primary care physician for followup. Summary of care provided to patient via paper. Patient verbalized understanding. Written instructions provided in Italian. The patient was discharged home and accompanied by digital strategy manager. She left the Emergency Department ambulatory and via private vehicle. Vocational Rehabilitation Supervisor driving. --20:03 Laurie Lobo R.N. 19:07 10/21/16. BP: 128/66. HR: 94. RR: 17. O2 saturation: 98% on room air. Temp: 98.5 F. Pain level now: 04/21. --20:03 Laurie Lobo R.N. Departure time: 20:Oct 21 2016. --20:03 Laurie Lobo R.N. Locked/Released at 10/21/2016 20:03 by Laurie Lobo R.N.
--- NOTE | 2016-10-21 20:23 | ED DISCHARGE INSTRUCTIONS ---
Patient: GARY GREGG General Instructions Merg[facility] VisitID: [id number] [place] [address] 26y, F Registration Date/Time: 10/21/2016 Moderate dental pain. INSTRUCTIONS Warnings: GENERAL WARNINGS: Return or contact your physician immediately if your condition worsens or changes unexpectedly, if not improving as expected, or if other problems arise. Specifically return if problem worsens. Prescription Medications: Zofran 4 mg: Take 1 orally every six hours as needed for nausea/vomiting. Dispense ten (10). No refills. Substitution is permissible. [place] 5 mg / 325 mg tablets: take 1 to 2 orally every 6 hours as needed for pain. Dispense fifteen (15). No refills. Substitution is permissible. Follow-up: Follow up with a dentist in about two days even if well. Call for an appointment. Summary of care provided to patient. Understanding of the discharge instructions verbalized by patient. ADDITIONAL INFORMATION Dental Pain A crack or cavity in the tooth, which exposes the sensitive inner area of the tooth can cause tooth pain. An infection in the gum or the root of the tooth can cause pain and swelling. The pain is often made worse by drinking hot or cold fluids, or biting on hard foods. Pain may spread from the tooth to the ear or jaw on the same side. Home Care: Avoid hot and cold foods and liquids since your tooth may be sensitive to temperature changes. If your tooth is chipped or cracked, or if there is a large open cavity, apply OIL OF CLOVES (available owtc-jul-kjxiwuo in drug stores) directly to the tooth to reduce pain. Some pharmacies carry an qegz-eep-yqmdfjo "toothache kit." This contains a paste, which can be applied over the exposed tooth to decrease sensitivity. A cold pack on your jaw over the sore area may help reduce pain. You may use acetaminophen (Tylenol) or ibuprofen (Motrin, Advil) to control pain, unless another medicine was prescribed. [ NOTE: If you have chronic liver or kidney disease or ever had a stomach ulcer or GI bleeding, talk with your doctor before using these medicines.] If you have signs of an infection, an antibiotic will be given. Take it as directed. Follow-Up as directed with a dentist. Your pain may go away with the treatment given. However, only a dentist can fully evaluate and treat the cause and prevent the pain from coming back again. TOOTHACHE IS A SIGN OF DISEASE IN YOUR TOOTH AND SHOULD BE EXAMINED AND TREATED BY A DENTIST. Get Prompt Medical Attention if any of the following occur: Your face becomes swollen or red Pain worsens or spreads to the neck Fever over 100.4 F (38.0 C) Unusual drowsiness; headache or stiff neck; weakness or fainting Pus drains from the tooth Difficulty swallowing or breathing Ondansetron Oral disintegrating tablet What is this medicine? ONDANSETRON (on BLAS se rupert) is used to treat nausea and vomiting caused by chemotherapy. It is also used to prevent or treat nausea and vomiting after surgery. How should I use this medicine? These tablets are made to dissolve in the mouth. Do not try to push the tablet through the foil backing. With dry hands, peel away the foil backing and gently remove the tablet. Place the tablet in the mouth and allow it to dissolve, then swallow. While you may take these tablets with water, it is not necessary to do so. Talk to your endoscopy tech regarding the use of this medicine in children. Special care may be needed. What side effects may I notice from receiving this medicine? Side effects that you should report to your doctor or health ambulatory care as soon as possible: allergic reactions like skin rash, itching or hives, swelling of the face, lips, or tongue breathing problems dizziness fast or irregular heartbeat feeling faint or lightheaded, falls fever and chills swelling of the hands and feet tightness in the chest Side effects that usually do not require medical attention (report to your doctor or health ambulatory care if they continue or are bothersome): constipation or diarrhea headache What may interact with this medicine? Do not take this medicine with any of the following medications: -apomorphine -cisapride -dofetilide -dronedarone -pimozide -thioridazine -ziprasidone This medicine may also interact with the following medications: -carbamazepine -phenytoin -rifampicin -tramadol -other medicines that prolong the QT interval (cause an abnormal heart rhythm) What if I miss a dose? If you miss a dose, take it as soon as you can. If it is almost time for your next dose, take only that dose. Do not take double or extra doses. Where should I keep my medicine? Keep out of the reach of children. Store between 2 and 30 degrees C (36 and 86 degrees F). Throw away any unused medicine after the expiration date. What should I tell my health care provider before I take this medicine? They need to know if you have any of these conditions: heart disease history of irregular heartbeat liver disease low levels of magnesium or potassium in the blood an unusual or allergic reaction to ondansetron, granisetron, other medicines, foods, dyes, or preservatives or trying to get breast-feeding What should I watch for while using this medicine? Check with your doctor or health ambulatory care as soon as you can if you have any sign of an allergic reaction. Hydrocodone Bitartrate, Acetaminophen Oral tablet What is this medicine? ACETAMINOPHEN; HYDROCODONE (a set a JEB blu fen; angela droe KOE done) is a pain reliever. It is used to treat mild to moderate pain. How should I use this medicine? Take this medicine by mouth. Swallow it with a full glass of water. Follow the directions on the prescription label. If the medicine upsets your stomach, take the medicine with food or milk. Do not take more than you are told to take. Talk to your endoscopy tech regarding the use of this medicine in children. This medicine is not approved for use in children. What side effects may I notice from receiving this medicine? Side effects that you should report to your doctor or health ambulatory care as soon as possible: allergic reactions like skin rash, itching or hives, swelling of the face, lips, or tongue breathing problems confusion feeling faint or lightheaded, falls stomach pain yellowing of the eyes or skin Side effects that usually do not require medical attention (report to your doctor or health ambulatory care if they continue or are bothersome): nausea, vomiting stomach upset What may interact with this medicine? alcohol antihistamines isoniazid medicines for depression, anxiety, or psychotic disturbances medicines for sleep muscle relaxants naltrexone narcotic medicines (opiates) for pain phenobarbital ritonavir tramadol What if I miss a dose? If you miss a dose, take it as soon as you can. If it is almost time for your next dose, take only that dose. Do not take double or extra doses. Where should I keep my medicine? Keep out of the reach of children. This medicine can be abused. Keep your medicine in a safe place to protect it from theft. Do not share this medicine with anyone. Selling or giving away this medicine is dangerous and against the law. Store at room temperature between 15 and 30 degrees C (59 and 86 degrees F). Protect from light. Keep container tightly closed. Throw away any unused medicine after the expiration date. Discard unused medicine and used packaging carefully. Pets and children can be harmed if they find used or lost packages. What should I tell my health care provider before I take this medicine? They need to know if you have any of these conditions: brain tumor Crohn's disease, inflammatory bowel disease, or ulcerative colitis drink more than 3 alcohol-containing drinks per day drug abuse or addiction head injury heart or circulation problems kidney disease or problems going to the bathroom liver disease lung disease, asthma, or breathing problems an unusual or allergic reaction to acetaminophen, hydrocodone, other opioid analgesics, other medicines, foods, dyes, or preservatives or trying to get breast-feeding What should I watch for while using this medicine? Tell your doctor or health ambulatory care if your pain does not go away, if it gets worse, or if you have new or a different type of pain. You may develop tolerance to the medicine. Tolerance means that you will need a higher dose of the medicine for pain relief. Tolerance is normal and is expected if you take the medicine for a long time. Do not suddenly stop taking your medicine because you may develop a severe reaction. Your body becomes used to the medicine. This does NOT mean you are addicted. Addiction is a behavior related to getting and using a drug for a non-medical reason. If you have pain, you have a medical reason to take pain medicine. Your doctor will tell you how much medicine to take. If your doctor wants you to stop the medicine, the dose will be slowly lowered over time to avoid any side effects. You may get drowsy or dizzy when you first start taking the medicine or change doses. Do not drive, use machinery, or do anything that may be dangerous until you know how the medicine affects you. Stand or sit up slowly. There are different types of narcotic medicines (opiates) for pain. If you take more than one type at the same time, you may have more side effects. Give your health care provider a list of all medicines you use. Your doctor will tell you how much medicine to take. Do not take more medicine than directed. Call emergency for help if you have problems breathing. The medicine will cause constipation. Try to have a bowel movement at least every 2 to 3 days. If you do not have a bowel movement for 3 days, call your doctor or health ambulatory care. Too much acetaminophen can be very dangerous. Do not take Tylenol (acetaminophen) or medicines that contain acetaminophen with this medicine. Many non-prescription medicines contain acetaminophen. Always read the labels carefully. You have been given the following additional information: Dental Pain Ondansetron Oral disintegrating tablet Hydrocodone Bitartrate, Acetaminophen Oral tablet (Electronically signed by Deloris Rock A.R.N.P. 10/21/2016 20:23)
--- NOTE | 2016-10-21 20:23 | ED ORDER SUMMARY ---
..... Patient: GARY GREGG OrderSheet [facility] VisitID: [id number] [address] [place] [address] 26y, F Registration Date/Time: 10/21/2016 ORDER SHEET Weight: 99.7 kg (stated) Allergies: Erythromycin, Toradol GENERAL ORDERS: MEDICATION ORDERS: Hydrocodone-APAP PO 5/325 mg (NOW, HIGH ALERT MEDICATION) (19:45 10/21/2016 HBivens A.R.N.P.) (Ack 19:58 EInderbitzen R.N.) (20:01 EInderbitzen R.N.) Zofran ODT PO 4 mg (NOW) (19:46 10/21/2016 HBivens A.R.N.P.) (Ack 19:58 EInderbitzen R.N.) (20:01 EInderbitzen R.N.) IV FLUIDS: ORDER SHEET NOTES: [Electronically signed by Laurie Lobo R.N. (20:03 10/21/2016)] [Electronically signed by Deloris Rock A.R.N.P. (20:23 10/21/2016)] [Electronically locked/signed by Laurie Lobo R.N. (20:03 10/21/2016)]
--- NOTE | 2016-10-21 20:23 | ED MAR SUMMARY ---
..... Medication Administration Record [facility] [address] [place] [address] Patient: GARY GREGG Visit ID: [id number] 26y, F Weight: 99.7 kg Height/Length: 57 in BMI: 47.6 ALLERGIES: Toradol, Erythromycin Given 20:10/21/2016 Laurie Lobo R.N. Medication Administered: HYDROCODONE-APAP [PO] (HYDROCODONE-ACETAMINOPHEN), Dose: 1 tab 5/325 mg Tablets PO. Medication Ordered: Hydrocodone-APAP PO 5/325 mg (NOW, HIGH ALERT MEDICATION). Given 20:10/21/2016 Laurie Lobo R.N. Medication Administered: ZOFRAN ODT [PO] (ONDANSETRON), Dose: 4 mg Oral Disintegrating Tablets PO. Medication Ordered: Zofran ODT PO 4 mg (NOW).
--- NOTE | 2016-10-21 20:23 | ED MED RECONCILIATION SUMMARY ---
Patient: GARY GREGG Medication Reconciliation Report [facility] VisitID: [id number] [address] [place] [address] 26y, F Registration Date/Time: 10/21/2016 Weight: 99.7 kg Height/Length: 57 in. BMI: 47.6 ALLERGIES: Erythromycin, Toradol The patient's Home Medications are listed below: THE FOLLOWING MEDICATIONS NEED TO BE RECONCILED: Albuterol Sulfate Inhalation, PRN Augmentin Oral Diclofenac Oral The source(s) of the original Home Medication information: patient The following Medications were given to the patient in the Emergency Department: Hydrocodone-APAP [PO] PO 1 tab, administered: 10/21/2016 8:01:00 PM Zofran ODT [PO] PO 4 mg, administered: 10/21/2016 8:01:00 PM The following Medications were prescribed to the patient: Zofran 4 mg: Take 1 orally every six hours as needed for nausea/vomiting. Dispense ten (10). No refills. Substitution is permissible. -- Deloris Rock, A.R.N.P. [place] 5 mg / 325 mg tablets: take 1 to 2 orally every 6 hours as needed for pain. Dispense fifteen (15). No refills. Substitution is permissible. -- Deloris Rock A.R.N.P.
--- NOTE | 2016-10-21 20:23 | ED MAR SUMMARY ---
..... Medication Administration Record [facility] [address] [place] [address] Patient: GARY GREGG Visit ID: [id number] 26y, F Weight: 99.7 kg Height/Length: 57 in BMI: 47.6 ALLERGIES: Toradol, Erythromycin Given 20:10/21/2016 Laurie Lobo R.N. Medication Administered: HYDROCODONE-APAP [PO] (HYDROCODONE-ACETAMINOPHEN), Dose: 1 tab 5/325 mg Tablets PO. Medication Ordered: Hydrocodone-APAP PO 5/325 mg (NOW, HIGH ALERT MEDICATION). Given 20:10/21/2016 Laurie Lobo R.N. Medication Administered: ZOFRAN ODT [PO] (ONDANSETRON), Dose: 4 mg Oral Disintegrating Tablets PO. Medication Ordered: Zofran ODT PO 4 mg (NOW).
--- NOTE | 2016-10-21 20:23 | ED MED RECONCILIATION SUMMARY ---
Patient: GARY GREGG Medication Reconciliation Report [facility] VisitID: [id number] [address] [place] [address] 26y, F Registration Date/Time: 10/21/2016 Weight: 99.7 kg Height/Length: 57 in. BMI: 47.6 ALLERGIES: Erythromycin, Toradol The patient's Home Medications are listed below: THE FOLLOWING MEDICATIONS NEED TO BE RECONCILED: Albuterol Sulfate Inhalation, PRN Augmentin Oral Diclofenac Oral The source(s) of the original Home Medication information: patient The following Medications were given to the patient in the Emergency Department: Hydrocodone-APAP [PO] PO 1 tab, administered: 10/21/2016 8:01:00 PM Zofran ODT [PO] PO 4 mg, administered: 10/21/2016 8:01:00 PM The following Medications were prescribed to the patient: Zofran 4 mg: Take 1 orally every six hours as needed for nausea/vomiting. Dispense ten (10). No refills. Substitution is permissible. -- Deloris Rock, A.R.N.P. [place] 5 mg / 325 mg tablets: take 1 to 2 orally every 6 hours as needed for pain. Dispense fifteen (15). No refills. Substitution is permissible. -- Deloris Rock A.R.N.P.
--- NOTE | 2016-10-21 20:23 | ED DISCHARGE INSTRUCTIONS ---
Patient: GARY GREGG General Instructions [facility] VisitID: [id number] [place] [address] 26y, F Registration Date/Time: 10/21/2016 Moderate dental pain. INSTRUCTIONS Warnings: GENERAL WARNINGS: Return or contact your physician immediately if your condition worsens or changes unexpectedly, if not improving as expected, or if other problems arise. Specifically return if problem worsens. Prescription Medications: Zofran 4 mg: Take 1 orally every six hours as needed for nausea/vomiting. Dispense ten (10). No refills. Substitution is permissible. [place] 5 mg / 325 mg tablets: take 1 to 2 orally every 6 hours as needed for pain. Dispense fifteen (15). No refills. Substitution is permissible. Follow-up: Follow up with a dentist in about two days even if well. Call for an appointment. Summary of care provided to patient. Understanding of the discharge instructions verbalized by patient. ADDITIONAL INFORMATION Dental Pain A crack or cavity in the tooth, which exposes the sensitive inner area of the tooth can cause tooth pain. An infection in the gum or the root of the tooth can cause pain and swelling. The pain is often made worse by drinking hot or cold fluids, or biting on hard foods. Pain may spread from the tooth to the ear or jaw on the same side. Home Care: Avoid hot and cold foods and liquids since your tooth may be sensitive to temperature changes. If your tooth is chipped or cracked, or if there is a large open cavity, apply OIL OF CLOVES (available [id number]-nms-xsicrtw in drug stores) directly to the tooth to reduce pain. Some pharmacies carry an ohnv-ddt-gfvhbav "toothache kit." This contains a paste, which can be applied over the exposed tooth to decrease sensitivity. A cold pack on your jaw over the sore area may help reduce pain. You may use acetaminophen (Tylenol) or ibuprofen (Motrin, Advil) to control pain, unless another medicine was prescribed. [ NOTE: If you have chronic liver or kidney disease or ever had a stomach ulcer or GI bleeding, talk with your doctor before using these medicines.] If you have signs of an infection, an antibiotic will be given. Take it as directed. Follow-Up as directed with a dentist. Your pain may go away with the treatment given. However, only a dentist can fully evaluate and treat the cause and prevent the pain from coming back again. TOOTHACHE IS A SIGN OF DISEASE IN YOUR TOOTH AND SHOULD BE EXAMINED AND TREATED BY A DENTIST. Get Prompt Medical Attention if any of the following occur: Your face becomes swollen or red Pain worsens or spreads to the neck Fever over 100.4 F (38.0 C) Unusual drowsiness; headache or stiff neck; weakness or fainting Pus drains from the tooth Difficulty swallowing or breathing Ondansetron Oral disintegrating tablet What is this medicine? ONDANSETRON (on BLAS se rupert) is used to treat nausea and vomiting caused by chemotherapy. It is also used to prevent or treat nausea and vomiting after surgery. How should I use this medicine? These tablets are made to dissolve in the mouth. Do not try to push the tablet through the foil backing. With dry hands, peel away the foil backing and gently remove the tablet. Place the tablet in the mouth and allow it to dissolve, then swallow. While you may take these tablets with water, it is not necessary to do so. Talk to your imagery analyst regarding the use of this medicine in children. Special care may be needed. What side effects may I notice from receiving this medicine? Side effects that you should report to your doctor or health complex care nurse as soon as possible: allergic reactions like skin rash, itching or hives, swelling of the face, lips, or tongue breathing problems dizziness fast or irregular heartbeat feeling faint or lightheaded, falls fever and chills swelling of the hands and feet tightness in the chest Side effects that usually do not require medical attention (report to your doctor or health complex care nurse if they continue or are bothersome): constipation or diarrhea headache What may interact with this medicine? Do not take this medicine with any of the following medications: -apomorphine -cisapride -dofetilide -dronedarone -pimozide -thioridazine -ziprasidone This medicine may also interact with the following medications: -carbamazepine -phenytoin -rifampicin -tramadol -other medicines that prolong the QT interval (cause an abnormal heart rhythm) What if I miss a dose? If you miss a dose, take it as soon as you can. If it is almost time for your next dose, take only that dose. Do not take double or extra doses. Where should I keep my medicine? Keep out of the reach of children. Store between 2 and 30 degrees C (36 and 86 degrees F). Throw away any unused medicine after the expiration date. What should I tell my health care provider before I take this medicine? They need to know if you have any of these conditions: heart disease history of irregular heartbeat liver disease low levels of magnesium or potassium in the blood an unusual or allergic reaction to ondansetron, granisetron, other medicines, foods, dyes, or preservatives or trying to get breast-feeding What should I watch for while using this medicine? Check with your doctor or health complex care nurse as soon as you can if you have any sign of an allergic reaction. Hydrocodone Bitartrate, Acetaminophen Oral tablet What is this medicine? ACETAMINOPHEN; HYDROCODONE (a set a JEB blu fen; angela droe KOE done) is a pain reliever. It is used to treat mild to moderate pain. How should I use this medicine? Take this medicine by mouth. Swallow it with a full glass of water. Follow the directions on the prescription label. If the medicine upsets your stomach, take the medicine with food or milk. Do not take more than you are told to take. Talk to your imagery analyst regarding the use of this medicine in children. This medicine is not approved for use in children. What side effects may I notice from receiving this medicine? Side effects that you should report to your doctor or health complex care nurse as soon as possible: allergic reactions like skin rash, itching or hives, swelling of the face, lips, or tongue breathing problems confusion feeling faint or lightheaded, falls stomach pain yellowing of the eyes or skin Side effects that usually do not require medical attention (report to your doctor or health complex care nurse if they continue or are bothersome): nausea, vomiting stomach upset What may interact with this medicine? alcohol antihistamines isoniazid medicines for depression, anxiety, or psychotic disturbances medicines for sleep muscle relaxants naltrexone narcotic medicines (opiates) for pain phenobarbital ritonavir tramadol What if I miss a dose? If you miss a dose, take it as soon as you can. If it is almost time for your next dose, take only that dose. Do not take double or extra doses. Where should I keep my medicine? Keep out of the reach of children. This medicine can be abused. Keep your medicine in a safe place to protect it from theft. Do not share this medicine with anyone. Selling or giving away this medicine is dangerous and against the law. Store at room temperature between 15 and 30 degrees C (59 and 86 degrees F). Protect from light. Keep container tightly closed. Throw away any unused medicine after the expiration date. Discard unused medicine and used packaging carefully. Pets and children can be harmed if they find used or lost packages. What should I tell my health care provider before I take this medicine? They need to know if you have any of these conditions: brain tumor Crohn's disease, inflammatory bowel disease, or ulcerative colitis drink more than 3 alcohol-containing drinks per day drug abuse or addiction head injury heart or circulation problems kidney disease or problems going to the bathroom liver disease lung disease, asthma, or breathing problems an unusual or allergic reaction to acetaminophen, hydrocodone, other opioid analgesics, other medicines, foods, dyes, or preservatives or trying to get breast-feeding What should I watch for while using this medicine? Tell your doctor or health complex care nurse if your pain does not go away, if it gets worse, or if you have new or a different type of pain. You may develop tolerance to the medicine. Tolerance means that you will need a higher dose of the medicine for pain relief. Tolerance is normal and is expected if you take the medicine for a long time. Do not suddenly stop taking your medicine because you may develop a severe reaction. Your body becomes used to the medicine. This does NOT mean you are addicted. Addiction is a behavior related to getting and using a drug for a non-medical reason. If you have pain, you have a medical reason to take pain medicine. Your doctor will tell you how much medicine to take. If your doctor wants you to stop the medicine, the dose will be slowly lowered over time to avoid any side effects. You may get drowsy or dizzy when you first start taking the medicine or change doses. Do not drive, use machinery, or do anything that may be dangerous until you know how the medicine affects you. Stand or sit up slowly. There are different types of narcotic medicines (opiates) for pain. If you take more than one type at the same time, you may have more side effects. Give your health care provider a list of all medicines you use. Your doctor will tell you how much medicine to take. Do not take more medicine than directed. Call emergency for help if you have problems breathing. The medicine will cause constipation. Try to have a bowel movement at least every 2 to 3 days. If you do not have a bowel movement for 3 days, call your doctor or health complex care nurse. Too much acetaminophen can be very dangerous. Do not take Tylenol (acetaminophen) or medicines that contain acetaminophen with this medicine. Many non-prescription medicines contain acetaminophen. Always read the labels carefully. You have been given the following additional information: Dental Pain Ondansetron Oral disintegrating tablet Hydrocodone Bitartrate, Acetaminophen Oral tablet (Electronically signed by Deloris Rock A.R.N.P. 10/21/2016 20:23)
--- NOTE | 2016-10-21 20:23 | ED ORDER SUMMARY ---
..... Patient: GARY GREGG OrderSheet [facility] VisitID: [id number] [address] [place] [address] 26y, F Registration Date/Time: 10/21/2016 ORDER SHEET Weight: 99.7 kg (stated) Allergies: Erythromycin, Toradol GENERAL ORDERS: MEDICATION ORDERS: Hydrocodone-APAP PO 5/325 mg (NOW, HIGH ALERT MEDICATION) (19:45 10/21/2016 HBivens A.R.N.P.) (Ack 19:58 EInderbitzen R.N.) (20:01 EInderbitzen R.N.) Zofran ODT PO 4 mg (NOW) (19:46 10/21/2016 HBivens A.R.N.P.) (Ack 19:58 EInderbitzen R.N.) (20:01 EInderbitzen R.N.) IV FLUIDS: ORDER SHEET NOTES: [Electronically signed by Laurie Lobo R.N. (20:03 10/21/2016)] [Electronically signed by Deloris Rock A.R.N.P. (20:23 10/21/2016)] [Electronically locked/signed by Laurie Lobo R.N. (20:03 10/21/2016)]
== END 2016-10-21 20:03 | disposition home or self-care (01) ==
LOC: ED SRH 18:56
DX: K08.89 Other specified disorders of teeth and supporting structures (principal); Z72.0 Tobacco use; Z88.5 Allergy status to narcotic agent; Z88.1 Allergy status to other antibiotic agents

== ENCOUNTER 2016-12-03 17:34 | Emergency (ER) | payer OTHER ==
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
--- NOTE | 2016-12-03 18:57 | ED NURSING NOTES ---
Clinical Report - Nurses [facility] [place] [address] 12/03/2016 17:35 [id number] TRI[facility] Triage time 17:44. Acuity: LEVEL 4. Chief Complaint: (Sunburn). --17:48 Amparo Smith R.N. 17:44 12/03/16. BP: 116/77. HR: 97. RR: 16. O2 saturation: 97%. Temp: 99.2 F. Pain level now: 04/21. --17:48 Amparo Smtih R.N. Acuity: LEVEL 5. --18:38 Richard Hannah R.N. Weight: 99.7 kg stated. Height/Length: 59 inches Per Patient. BMI: 44.4. --17:46 Amparo Smith R.N. Medications Albuterol Sulfate HFA Inhalation, as needed. --19:09 Richard Hannah R.N. Allergies Erythromycin. Toradol. --19:09 Richard Hannah R.N. History Arrived by private vehicle. Historian: patient. This started yesterday. She has had weakness. ( thirsty, nausea, diarrhea). Treatment MAINTENANCE CUSTODIAN: (meloxicam at 1300.). PAST MEDICAL HX: Negative. 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 SOCIAL HX: Current every day light tobacco smoker (cigarette)- less than 1/2 a pack per day. No alcohol use or drug use. No infectious disease exposure. ABUSE ASSESSMENT: No report of abuse. SELF HARM ASSESSMENT: A self harm assessment was performed. The patient answered "no" to the question "Do you have thoughts of harming or killing yourself?". --17:48 Amparo Smith R.N. Treatment MAINTENANCE CUSTODIAN: (Meloxicam). --18:36 Richard Hannah R.N. This started yesterday. --18:36 Richard Hannah R.N. Interventions To waiting room. --17:48 Amparo Smith R.N. PHYSICAL ASSESSMENT 18:36 12/03/16. GENERAL / NEURO / PSYCH: Alert. Oriented X 4. Appears in no acute distress. SKIN: Erythema (shoulders left and right and upper back). --18:36 Richard Hannah R.N. NURSING PROGRESS NOTES 18:36 12/03/16. The plan of care for this patient has been created. Reassurance given. ( Pt placed in triage room to see provider). --18:37 Richard Hannah R.N. DISPOSITION / DISCHARGE 19:08 12/03/16. Condition at departure: improved. The goals identified in the patient's plan of care were met. No learning barriers present. Discharge instructions provided and reviewed with the patient. Reviewed warnings. Reviewed medication(s). Treatments reviewed. Patient verbalized understanding. Written instructions provided in Spanish. The patient was discharged by the nurse practitioner. She was discharged home and accompanied by blacksmith hammer operator. She left the Emergency Department ambulatory and via private vehicle. Wheel Assembler driving. FALL RISK ASSESSMENT: Fall risk assessment completed. No fall risk identified. --19:08 Richard Hannah R.N. 19:07 12/03/16. BP: 112/72. HR: 78. RR: 14. O2 saturation: 99% on room air. Temp: 98.1 F (oral). Pain level now: 09/19. --19:08 Richard Hannah R.N. 19:08 12/03/16. Departure time: 19:08. --19:08 Richard Hannah R.N. Locked/Released at 12/03/2016 19:10 by Richard Hannah R.N.
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
--- NOTE | 2016-12-03 18:57 | ED NURSING NOTES ---
Clinical Report - Nurses [facility] [place] [address] 12/03/2016 17:35 [id number] Triage time 17:44. Acuity: LEVEL 4. Chief Complaint: (Sunburn). --17:48 Amparo Smith R.N. 17:44 12/03/16. BP: 116/77. HR: 97. RR: 16. O2 saturation: 97%. Temp: 99.2 F. Pain level now: 04/21. --17:48 Amparo Smith R.N. Acuity: LEVEL 5. --18:38 Richard Hannah R.N. Weight: 99.7 kg stated. Height/Length: 59 inches Per Patient. BMI: 44.4. --17:46 Amparo Smith R.N. Medications Albuterol Sulfate HFA Inhalation, as needed. --19:09 Richard Hannah R.N. Allergies Erythromycin. Toradol. --19:09 Richard Hannah R.N. History Arrived by private vehicle. Historian: patient. This started yesterday. She has had weakness. ( thirsty, nausea, diarrhea). 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 PAST MEDICAL HX: Negative. 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 SOCIAL HX: Current every day light tobacco smoker (cigarette)- less than 1/2 a pack per day. No alcohol use or drug use. No infectious disease exposure. ABUSE ASSESSMENT: No report of abuse. SELF HARM ASSESSMENT: A self harm assessment was performed. The patient answered "no" to the question "Do you have thoughts of harming or killing yourself?". --17:48 Amparo Smith R.N. Treatment BOX PRESS OPERATOR: (Meloxicam). --18:36 Richard Hannah R.N. This started yesterday. --18:36 Richard Hannah R.N. Interventions To waiting room. --17:48 Amparo Smith R.N. PHYSICAL ASSESSMENT 18:36 12/03/16. GENERAL / NEURO / PSYCH: Alert. Oriented X 4. Appears in no acute distress. SKIN: Erythema (shoulders left and right and upper back). --18:36 Richard Hannah R.N. NURSING PROGRESS NOTES 18:36 12/03/16. The plan of care for this patient has been created. Reassurance given. ( Pt placed in triage room to see provider). --18:37 Richard Hannah R.N. DISPOSITION / DISCHARGE 19:08 12/03/16. Condition at departure: improved. The goals identified in the patient's plan of care were met. No learning barriers present. Discharge instructions provided and reviewed with the patient. Reviewed warnings. Reviewed medication(s). Treatments reviewed. Patient verbalized understanding. Written instructions provided in Monegasque. The patient was discharged by the nurse practitioner. She was discharged home and accompanied by district manager major accounts sales. She left the Emergency Department ambulatory and via private vehicle. Commercial Lending Vice President driving. FALL RISK ASSESSMENT: Fall risk assessment completed. No fall risk identified. --19:08 Richard Hannah R.N. 19:07 12/03/16. BP: 112/72. HR: 78. RR: 14. O2 saturation: 99% on room air. Temp: 98.1 F (oral). Pain level now: 09/19. --19:08 Richard Hannah R.N. 19:08 12/03/16. Departure time: 19:08. --19:08 Richard Hannah R.N. Locked/Released at 12/03/2016 19:10 by Richard Hannah R.N.
--- NOTE | 2016-12-03 22:17 | ED MAR SUMMARY ---
..... Medication Administration Record Located Within [facility] [address] [place], [place] [id number] Patient: GARY GREGG Visit ID: [id number] 26y, F Weight: 99.7 kg Height/Length: 59 in BMI: 44.4 ALLERGIES: Erythromycin, Toradol
--- NOTE | 2016-12-03 22:17 | ED MED RECONCILIATION SUMMARY ---
Patient: GARY GREGG Medication Reconciliation Report [facility] VisitID: [id number] [address] [place] [address] 26y, F Registration Date/Time: 12/03/2016 Weight: 99.7 kg Height/Length: 59 in. BMI: 44.4 ALLERGIES: Erythromycin, Toradol The patient's Home Medications are listed below: THE FOLLOWING MEDICATIONS NEED TO BE RECONCILED: Albuterol Sulfate HFA Inhalation The source(s) of the original Home Medication information: Not obtained. The following Medications were given to the patient in the Emergency Department: None. The following Medications were prescribed to the patient: Ultram 50 mg: take 1-2 orally every 8 hours as needed for pain. Dispense fifteen (15). No refills. -- Francesca Davis A.R.N.P.
--- NOTE | 2016-12-03 22:17 | ED MED RECONCILIATION SUMMARY ---
Patient: GARY GREGG Medication Reconciliation Report [facility] VisitID: [id number] [address] [place] [address] 26y, F Registration Date/Time: 12/03/2016 Weight: 99.7 kg Height/Length: 59 in. BMI: 44.4 ALLERGIES: Erythromycin, Toradol The patient's Home Medications are listed below: THE FOLLOWING MEDICATIONS NEED TO BE RECONCILED: Albuterol Sulfate HFA Inhalation The source(s) of the original Home Medication information: Not obtained. The following Medications were given to the patient in the Emergency Department: None. The following Medications were prescribed to the patient: Ultram 50 mg: take 1-2 orally every 8 hours as needed for pain. Dispense fifteen (15). No refills. -- Francesca Davis A.R.N.P.
--- NOTE | 2016-12-03 22:17 | ED DISCHARGE INSTRUCTIONS ---
Patient: GARY GREGG General Instructions [facility] VisitID: [id number] [place] [address] 26y, F Registration Date/Time: 12/03/2016 First degree sunburn with blistering. INSTRUCTIONS Do not work tomorrow. (Try the Solarcaine spray or cold washclothes soaked in vinegar-water and patted gently on skin. Sun protection this summer-sleeves and hat as well as sunscreen). Warnings: GENERAL WARNINGS: Return or contact your physician immediately if your condition worsens or changes unexpectedly, if not improving as expected, or if other problems arise. Prescription Medications: Ultram 50 mg: take 1-2 orally every 8 hours as needed for pain. Dispense fifteen (15). No refills. Understanding of the discharge instructions verbalized by patient. ADDITIONAL INFORMATION Sunburn A sunburn is an injury to the skin caused by over-exposure to ultraviolet (UV) light from the sun. The skin becomes pink or red and painful. There may be headache and a low grade fever. Very severe sunburns may cause blistering and fluid draining from the skin. Open blisters may become infected, so watch for the signs below. The reaction begins to get better after 12 days. A few days later the skin begins to peel. Depending on how severe the burn is, it may take up to three weeks to fully heal. Home care The following guidelines will help you care for you sunburn at home: 1) Apply an ice pack (ice cubes in a plastic bag, wrapped in a towel) over the injured area for 20 minutes every 12 hours the first day for pain relief. Continue this 34 times a day until the pain goes away. Cool baths and showers will also give relief. 2) [id number] first-aid creams and sprays contain lidocaine or benzocaine, an anesthetic which also relieves pain. However, some persons are sensitive to "maicol". If redness or itching increases, discontinue their use. 3) If blisters appear, don't break them. Open blisters slow the healing process and increase the risk of infection. Treat open blisters with antibacterial cream or ointment. 4) Wash the burned area daily with soap and water. Pat dry with a clean towel. Apply a moisturizing cream with aloe. Hydrocortisone cream (sold over the counter) may help decrease pain and swelling and speed up healing. If a dressing was applied, reapply it until any open blisters dry up. If the bandage sticks, soak it off in warm water. 5) You may use ibuprofen or naproxen to control pain, unless another pain medicine was prescribed. If you have chronic liver or kidney disease or ever had a stomach ulcer or GI bleeding, talk with your doctor before using these medicines. Do not use ibuprofen in children under six months of age. 6) Drink plenty of fluids to avoid dehydration. Prevention Sun exposure damages the DNA of skin cells and contributes to aging skin. It is the main cause of skin cancer. Protect your skin using the tips below: Limit your exposure to UV light. The sun is strongest during the hours 10 a.m. and 4 p.m. If possible, arrange your sun exposure to be before or after those hours. The effect is more intense at the beach where light reflects off the sand and water, and at higher altitudes, especially where there is reflecting snow. You can even get a sunburn on a cloudy day, since most of the UV light passes through clouds. Cover up with clothing and a hat. Clothing is more effective than sunscreen in blocking UV light. Stay in the shade or carry an umbrella. Apply sunscreen to uncovered skin. Reapply every two hours, and sooner if it is washed away by sweating or water. Use a sunscreen rated at SPF 15 or higher. Wear sunglasses to protect your eyes from UV exposure. Many heart, nausea, anti-inflammatory, and diabetic medications, as well as antibiotics and diuretics, can increase yoursensitivityto the sun. Check medication pamphlets and talk with your doctor if you are unsure about your increased risk of sun sensitivity. Sunscreens may not prevent this response. Follow-up care Most sunburns heal without infection. Occasionally an infection may occur despite proper treatment. Therefore, watch for the signs of infection listed below. When to seek medical care Get prompt medical attention if any of the following occur: Increasing pain Increasing redness, or red streaks leading away from an open blister Swelling or pus coming from open blisters Fever over 100.4 F (38.0 C) You have been given the following additional information: Sunburn Do not work tomorrow. (Electronically signed by Francesca Davis A.R.N.P. 12/03/2016 22:17)
--- NOTE | 2016-12-03 22:17 | ED MAR SUMMARY ---
..... Medication Administration Record [facility] [address] [place], [place] [id number] Patient: GARY GREGG Visit ID: [id number] 26y, F Weight: 99.7 kg Height/Length: 59 in BMI: 44.4 ALLERGIES: Erythromycin, Toradol
== END 2016-12-03 19:56 | disposition home or self-care (01) ==
LOC: ED SRH 17:34
DX: S00.82XA Blister (nonthermal) of other part of head, initial encounter (principal); S20.9 Superficial injury of unspecified parts of thorax; S40.821A Blister (nonthermal) of right upper arm, initial encounter; S40.822A Blister (nonthermal) of left upper arm, initial encounter; L55.0 Sunburn of first degree; X30.XXXA Exposure to excessive natural heat, initial encounter; Y92.019 Unspecified place in single-family (private) house as the place of occurrence of the external cause; F17.210 Nicotine dependence, cigarettes, uncomplicated